=== PATIENT | male | born 1990 | race Caucasian/White ===

== ENCOUNTER 2024-03-28 09:42 | Emergency (ER) | payer OTHER, SELFPAY ==
--- NOTE | ~2024-03-28 | XR_ITS ---
EXAMINATION: XR chest 2V DATE: 03/28/2024 10:10 INDICATION: Left chest pain. TECHNIQUE: Frontal and lateral views of the chest were obtained. COMPARISON: None. FINDINGS: There is no pneumonia, pleural effusion, or pneumothorax. The heart size is normal. IMPRESSION: 1. No acute cardiopulmonary disease. Reviewed, dictated and finalized at location A. OR DESIGN ENGINEER
--- NOTE | 2024-03-28 09:44 | ECG_ITS ---
Test Date: 2024-03-28 09:50:56 Measurements Intervals [place] Rate: 69 P: 55 UT: 129 QRS: 57 QRSD: 88 T: 7 QT: 366 QTc: 395 Interpretive Statements SINUS RHYTHM POSSIBLE RIGHT VENTRICULAR CONDUCTION DELAY BORDERLINE ST-T WAVE ABNORMALITY- INFERIOR LEADS BASELINE WANDER- II, III, V3 BORDERLINE ECG No previous ECG available for comparison Electronically Signed On 03-28-2024 10:01:08 FOOD AND NUTRITION SERVICES ASSISTANT by Christopher Washington D.O.
[2024-03-28 09:46] VITALS: BP 147/89; PULSE 74; RESP 18; TEMP 36.5; O2SAT 99
[2024-03-28 09:52] VITALS: PULSE 65; O2SAT 99
--- OUTSIDE RECORDS SUMMARY | 2024-03-28 09:54 | XMS_ITS | Patient Health Record ---
Author Organization [facility] Address [address] [place] [address] Care Team Providers Care Program Manager Name Role Phone Gregor Rodríguez Primary Care Provider Allergies Allergen (clinical drug ingredient) Drug/Non Drug Allergy documented on EMR Reaction Allergy Type Onset Date Status penciclovir Penciclovir Unknown Drug Allergy Act cherri Reason For Referral No Information Medications Medication SIG (Take, Route, Fr equency, Duration) Notes Start Date End Date Status OLANZapine 2.5 MG 1 tablet in morning (in addition to 5 mg that is taken at night) Orally Once a day for 30 days 09/07/2022 Active diazePAM 5 MG 1 tablet Orally Twic e a day as needed for anxiety for 30 days 09/07/2022 Active FLUoxetine HCl 20 MG 1 capsule (take wit h 40 mg capsule) Orally Once a day for 30 days 08/31/2022 Unknown OLANZapine 5 MG TAKE 1/2 TO 1 TABLET BY MOUTH EVERY NIGHT AT BEDTIME for 30 Active Zolpidem Tartrate 5 MG TAKE 1 TABLET BY MOUTH EVERY DAY AT BEDTIME NEEDED FOR INSOMNIA for 30 09/18/2022 Active FLUoxetine HCl 40 MG TAKE 1 CAPSULE BY M OUTH EVERY DAY IN THE MORNING for 30 Active Problems Problem Type SNOMED Code ICD Code Onset Dates Problem Status W/U Status Risk Notes Problem Generalized anxiety disorder (92445606) Generalized anxiety disorder (F41.1) Active confirmed Problem Depression (918122710) Depression (F32.9) Active confirmed Problem Panic attack (702625007) Panic attack (F41.0) Active confirmed Plan Of Treatment No Information Insurance Providers Payer Name Payer Address Payer Phone Subscriber Number Group Number Insured Name Patient Relationship to Insured Coverage Start Date Coverage End Date [facility] Attn Claims Department [address] [place] [id number] [phone] [id number] Jesus Valentin Self - patient is the insured 9 [employer] Att[employer] Claims Department [address] [place] [address] [phone] Jesus Valentin Self - patient is the insured 9 [facility] [employer] Attn Claims Department [address] [place] [address] [phone] Jesus Valentin Self - patient is the insured 3 Medical (General) History Surgical History Surgery Date(Month/Year) teeth exaction
--- OUTSIDE RECORDS SUMMARY | 2024-03-28 09:54 | XMS_ITS ---
Author Organization [facility] Address [address] [place] [address] Care Team Providers Care Payloader Machine Operator Name Role Phone Gregor Rodríguez Primary Care Provider [phone] REASON FOR VISIT f/u Encounters Encounter Location Date Provider Diagnosis [address] [address] 10/14/2022 Gregor Rodríguez Plan Of Treatment No Information Progress Notes * Jesus VALENTIN WDOB:1990 (33 yo M)Acc No.[id number]:10/14/2022 UNLOCKED PROGRESS NOTE Patient: Jesus HANNA Provider: Lee Rodríguez DNP, PMHNP-BC :1990 A ge:32 Y S ex:Male Date:10/14/2022 Address:[address] [place] [address] [address], [place], [place]-[address] Subjective: * Chief Complaints: * 1 . F/u. * Medical History: Objective: * Vitals: Assessment: Plan: * Treatment: * * Electronic signature of Paloma Rodríguez APRN, [id number] on 03/28/2024 at 09:54 AM BROADCAST SYSTEMS ENGINEER Sign off status: Pending * Provider: Lee Rodríguez DNP, PMHNP-BC Date: 0 10/14/2022 Generated for Darius james/Viola/eTransmitting on: 0 03/28/2024 09:54 AM BROADCAST SYSTEMS ENGINEER
--- OUTSIDE RECORDS SUMMARY | 2024-03-28 09:54 | XMS_ITS ---
Author Organization [facility] Address [address] [place] [address] Care Team Providers Care Bale Sewer Name Role Phone Gregor Rodríguez Primary Care Provider [phone] REASON FOR VISIT needs appt. Encounters Encounter Location Date Provider Diagnosis [address] [place] [address] 01/04/2023 Gregor Rodríguez Plan Of Treatment No Information Progress Notes * Jesus VALENTIN WDOB:1990 (32 yo M)Acc No.[id number]:01/04/2023 Patient: Carmen MULLER Jesus Iron :1990 A ge:32 Y S ex:Male Address:[address], [place] [address] * true * Date: Generated for Darius james/Viola/eTransmitting on: 0 03/28/2024 09:54 AM AEROSPACE STRESS ENGINEER
--- OUTSIDE RECORDS SUMMARY | 2024-03-28 09:54 | XMS_ITS ---
Author Organization [facility] Address [address] [place] [address] Care Team Providers Care Security Sales Manager Name Role Phone Gregor Rodríguez Primary Care Provider REASON FOR VISIT f/u Medications Medication SIG (Take, Route, Fr equency, Duration) Notes Start Date End Date Status OLANZapine 2.5 MG 1 tablet in morning (in addition to 5 mg that is taken at night) Orally Once a day for 30 days 09/07/2022 Active diazePAM 5 MG 1 tablet Orally Twic e a day as needed for anxiety for 30 days 09/07/2022 Active OLANZapine 5 MG TAKE 1/2 TO 1 TABLET BY MOUTH EVERY NIGHT AT BEDTIME for 30 Active Zolpidem Tartrate 5 MG TAKE 1 TABLET BY MOUTH EVERY DAY AT BEDTIME NEEDED FOR INSOMNIA for 30 09/18/2022 Active FLUoxetine HCl 40 MG TAKE 1 CAPSULE BY M OUTH EVERY DAY IN THE MORNING for 30 Active FLUoxetine HCl 20 MG 1 capsule (take wit h 40 mg capsule) Orally Once a day for 30 days 08/31/2022 Unknown Encounters Encounter Location Date Provider Diagnosis [address] [place] [address] 10/20/2022 Gregor Rodríguez Plan Of Treatment No Information Progress Notes * Jesus VALENTIN WDOB:1990 (33 yo M)Acc No.[id number]:10/20/2022 UNLOCKED PROGRESS NOTE Patient: Carmen Jesus MULLER Provider: Lee Rodríguez DNP, [facility]- :1990 A ge:32 Y S ex:Male Date:10/20/2022 Address:[address] [place] [address] [address], [facility] Subjective: * Chief Complaints: * 1 . F/u. * Medical History: * Medications: T aking OLANZapine 2.5 MG Tablet 1 tablet in morning (in addition to 5 mg that is taken at night) Orally Once a day , Taking diazePAM 5 MG Tablet 1 tablet Orally Twice a day as needed for anxiety , Taking Zolpidem Tartrate 5 MG Tablet TAKE 1 TABLET BY MOUTH EVERY DAY AT BEDTIME NEEDED FOR INSOMNIA , Taking FLUoxetine HCl 40 MG Capsule TAKE 1 CAPSULE BY MOUTH EVERY DAY IN THE MORNING , Taking OLANZapine 5 MG Tablet TAKE 1/2 TO 1 TABLET BY MOUTH EVERY NIGHT AT BEDTIME , Unknown FLUoxetine HCl 20 MG Capsule 1 capsule (take with 40 mg capsule) Orally Once a day Objective: * Vitals: Assessment: Plan: * Treatment: * * Electronic signature of Paloma Rodríguez APRN, [id number] on 03/28/2024 at 09:53 AM STEEL DIE ENGRAVER Sign off status: Pending * Provider: Lee Rodríguez DNP, [facility]- Date: 0 10/20/2022 Generated for Darius james/Viola/Farheen on: 0 03/28/2024 09:53 AM STEEL DIE ENGRAVER
[2024-03-28] MEDS: ASPIRIN 81 MG CHEWABLE TABLET 324 MG PO (10:01)
[2024-03-28 10:07] LABS: Basophils Absolute Auto 0.1 K/mm3 (0.0-0.1); Basophils Percent Auto 0.8 % (0.2-1.2); Eosinophils Absolute Auto 0.4 K/mm3 (0-0.3); Eosinophils Percent Auto 4.8 % (0-4.4); Hematocrit 50.1 % (42.0-52.0); Hemoglobin 16.9 g/dL (14.0-18.0); Immature Granulocyte Absolute 0.07 K/mm3 (0.00-0.031); Immature Granulocyte Percent A 0.8 % (0-0.5); Lymphocytes Absolute Auto 2.96 K/mm3 (0.9-3.2); Mean Corpuscular HGB Conc 33.7 g/dl (32-36); Mean Corpuscular Hemoglobin 29.4 pg (26-34); Mean Corpuscular Volume 87.1 fl (80-100); Mean Platelet Volume 8.9 fl (7.4-10.4); Monocytes Absolute Auto 0.7 K/mm3 (0.1-0.6); Monocytes Percent Auto 7.6 % (2.6-8.5); Neutrophils Absolute Auto 4.5 K/mm3 (1.3-6.7); Platelet Count Result 281 k/mm3 (150-375); Red Blood Count 5.75 M/mm3 (4.6-6.20); Red Cell Distribution Width 13.1 % (11.5-14.5); White Blood Count 8.7 K/mm3 (4.5-10.0)
[2024-03-28 10:18] LABS: Alanine Aminotransferase 49 U/L (6-50); Albumin Level 4.5 g/dL (3.5-5.1); Alkaline Phosphatase 48 U/L (38-126); Anion Gap 12 mmol/L (4-12); Aspartate Amino Transferase 31 U/L (17-59); Bilirubin,Total 0.6 mg/dL (0.2-1.3); Blood Urea Nitrogen 15 mg/dL (9-20); Calcium 8.8 mg/dL (8.4-10.2); Carbon Dioxide 24 mmol/L (22-30); Chloride 104 mmol/L (98-107); Estimated CRCL calculation 108 ml/min; Estimated Glomerular Filt Rate > 60; Glucose 94 mg/dL (65-110); Lipase 143 U/L (23-300); Potassium 4.4 mmol/L (3.4-5.0); Sodium 140 mmol/L (137-145)
[2024-03-28 10:22] LABS: INR 0.9; Prothrombin Time 12.2 Seconds (11.1-14.7)
[2024-03-28 10:23] LABS: Partial Thromboplastin Time 23.6 Seconds (22.3-36.8)
[2024-03-28 10:29] LABS: Troponin I < 0.012 ng/mL (0.000-0.034)
--- NOTE | 2024-03-28 11:32 | ED.CHESTPAIN ---
HPI - Chest Pain General Chief Complaint: Chest Pain Stated Complaint: left sided CP Time Seen by Provider: 03/28/24 09:47 Source: patient Mode of arrival: ambulatory History of Present Illness HPI narrative: 33-year-old with a history of anxiety disorder here with complaints of left-sided chest pain since last night. Patient stated it is constant in nature nonradiating. Denies any shortness of breath. No previous history of CAD. MD complaint: chest pain Pertinent past history: other (anxiety) Onset (ago): day(s) (1) Timing of current episode: constant Pain location: left chest Pain radiation: none Exacerbating factors: nothing Treatment prior to arrival: none Related Data Allergies Allergy/AdvReac Type Severity Reaction Status Date / Time Penicillins Allergy Rash Verified 03/28/24 09:53 Review of Systems Review of Systems: All systems reviewed & are unremarkable except as noted in HPI and below Constitutional: Constitutional: Reports no additional constitutional complaints Eyes: Eyes: Reports no additional eye complaints ENT: Reports system reviewed and no additional complaints, except as documented Cardiovascular: Cardiovascular: Reports as per HPI Respiratory: Respiratory: Reports no additional respiratory complaints Gastrointestinal: Gastrointestinal: Reports no additional gastrointestinal complaints Genitourinary: Genitourinary: Reports no additional male genitourinary complaints Integumentary/Breasts: Skin/Breast: Reports system reviewed and no additional complaints, except as docu Exam Narrative: GENERAL: Well-appearing, well-nourished, and in no acute distress. HEAD: Normocephalic, atraumatic. EYES: PERRLA and EOMI. ENT: Nares clear, no rhinorrhea or epistaxis. Mucous membranes moist. NECK: Supple. CHEST: Clear to auscultation. No respiratory distress. HEART: Regular rate and rhythm. No murmur heard. Normal peripheral pulses. ABDOMEN: Soft, nontender, nondistended, normal active bowel sounds. EXTREMITIES: Normal range of motion. No edema. SKIN: Warm, dry, no rash. NEURO: No focal deficits. Alert and oriented x3. PSYCH: Normal mood and affect. Course Course Emergency Course: Patient comfortably resting , informed him about the lab work and x-ray findings. Advised him to continue his home medication follow-up with his primary doctor Vital Signs Vital signs: Vital Signs Temperature 36.5 C 03/28/24 09:46 Pulse Rate 74 03/28/24 09:46 Respiratory Rate 18 03/28/24 09:46 Blood Pressure 147/89 H 03/28/24 09:46 Pulse Oximetry 99 03/28/24 09:46 Oxygen Delivery Room Air 03/28/24 09:46 Temperature 36.5 C 03/28/24 09:46 Pulse Rate 65 03/28/24 09:52 Respiratory Rate 18 03/28/24 09:46 Blood Pressure 147/89 H 03/28/24 09:46 Pulse Oximetry 99 03/28/24 09:52 Oxygen Delivery Room Air 03/28/24 09:52 MDM - Chest Pain Lab Data 03/28/24 09:52 03/28/24 09:52 Labs: Lab Results 03/28/24 Range/Units 09:52 WBC 8.7 (4.5-10.0) K/mm3 RBC 5.75 (4.6-6.20) M/mm3 Hgb 16.9 (14.0-18.0) g/dL Hct 50.1 (42.0-52.0) % MCV 87.1 (80-100) fl MCH 29.4 (26-34) pg MCHC 33.7 (32-36) g/dl RDW 13.1 (11.5-14.5) % Plt Count 281 (150-375) k/mm3 MPV 8.9 (7.4-10.4) fl Immature Gran % (Auto) 0.8 H (0-0.5) % Neut % (Auto) 52.0 (45.5-73.1) % Lymph % (Auto) 34.0 (18.3-44.2) % [place] % (Auto) 7.6 (2.6-8.5) % Eos % (Auto) 4.8 H (0-4.4) % Baso % (Auto) 0.8 (0.2-1.2) % Lymph # (Auto) 2.96 (0.9-3.2) K/mm3 [place] # (Auto) 0.7 H (0.1-0.6) K/mm3 Eos # (Auto) 0.4 H (0-0.3) K/mm3 Baso # (Auto) 0.1 (0.0-0.1) K/mm3 Abs Immat Gran (auto) 0.07 H (0.00-0.031) K/mm3 Absolute Neuts (auto) 4.5 (1.3-6.7) K/mm3 Absolute Nucleated RBC 0.000 (0.0-0.012) K/mm3 Nucleated RBC % 0.0 (0.0-0.2) % PT 12.2 (11.1-14.7) Seconds INR 0.9 APTT 23.6 (22.3-36.8) Seconds Sodium 140 (137-145) mmol/L Potassium 4.4 (3.4-5.0) mmol/L Chloride 104 (98-107) mmol/L Carbon Dioxide 24 (22-30) mmol/L Anion Gap 12 (4-12) mmol/L BUN 15 (9-20) mg/dL Creatinine 0.90 (0.7-1.3) mg/dL Estim Creat Clear Calc 108 ml/min Estimated GFR > 60 (59 - ) Glucose 94 (65-110) mg/dL Calcium 8.8 (8.4-10.2) mg/dL Total Bilirubin 0.6 (0.2-1.3) mg/dL AST 31 (17-59) U/L ALT 49 (6-50) U/L Alkaline Phosphatase 48 (38-126) U/L Troponin I < 0.012 (0.000-0.034) ng/mL Total Protein 8.0 (6.3-8.2) g/dL Albumin 4.5 (3.5-5.1) g/dL Lipase 143 (23-300) U/L ECG Data EKG #1: ECG completion date: 03/28/24 ECG completion time: 09:50 EKG Interpretation: normal rate (69), sinus rhythm, non-specific ST changes, normal QT and NL axis Discharge Plan Discharge Clinical Impression: Atypical chest pain Patient Disposition: Home, Self-Care Condition: Stable Instructions: Chest Pain (ED) Patient Language: Arabic Follow-up/Referrals: Antonia Dawkins MD [Primary Care Provider] - Frandy Lizama MD [Physician] - Time of Disposition: 11:33
[2024-03-28 11:52] VITALS: BP 140/95; PULSE 97; RESP 16; O2SAT 97
== END 2024-03-28 12:00 | disposition home or self-care (01) ==
PROVIDERS: Emergency Provider Family Medicine; PCP Pediatrics
DX: R07.89 Other chest pain (principal); F41.9 Anxiety disorder, unspecified
CPT/HCPCS: 36415; 71046; 80053; 83690; 84484; 85025; 85610; 85730; 93005; 99284; A9270